=== PATIENT | male | born 2000 ===

== ENCOUNTER 2023-02-23 10:00 | Outpatient (AMB) | payer OTHER, SELFPAY ==
--- NOTE | 2023-02-23 11:13 | MHC.OFFWIV ---
Intake Vital Signs 02/23/23 11:16 Height 6 ft 1 in Weight 87.997 kg BMI 25.6 BP 122/80 Blood Pressure Location Rt brachial Position Sitting Pulse 80 Pulse Source Pulse Oximeter Temp 98.4 F Temp Source Temporal Artery Scan Pulse Oximetry (%) 98 Oxygen Delivery Method Room Air Intake Visit Reasons: EP stuffy nose cough sore throat masked in lobby Intake Note: Patient here has been sick for about 1 week but yesterday and today is has worsened. he has a cough and stuffy nose. Patient Tobacco Use Status: Never used Tobacco Allergies clindamycin Adverse Reaction (Verified 02/23/23 11:17) unknown Do you need a note to return to daycare/school/sports/work: Yes HPI HPI Comments History of Present Illness Details 22-year-old male presents with sore throat, fatigue, fevers and chills. [facility] Medical History (Updated 02/23/23 @ 11:39 by Carmen Meng NP) No pertinent past medical history Surgical History (Updated 12/10/21 @ 04:02 by Maria Eugenia Roldan MD) No pertinent past surgical history Family History (Updated 10/10/21 @ 10:43 by Maria Eugenia Roldan MD) Mother Anxiety Diabetes mellitus Housing: House Patient Tobacco Use Status: Never used Tobacco e-Cigarette/Vaping Use: Never Used service: No Current occupational status: employed Cognitive needs: No Hearing needs: No Vision needs: No Review of Systems Const Details: Constitutional: Positive Fever, positive Chills ENT/Mouth: No Ear Pain, No Hoarseness, positive sore throat Eyes: No Eye Pain, No Swelling, No Redness, No Foreign Body Cardiovascular: No Chest Pain, No SOB Respiratory: No Cough, No Dyspnea Gastrointestinal: No Nausea, No Vomiting, No Diarrhea, No abdominal Pain Genitourinary: No Dysuria, No Hematuria Musculoskeletal: No joint pain, No Myalgias, No Joint Swelling Skin: No Skin lacerations, No rash Neuro: No Weakness, No Numbness, No Paresthesias, No Dizziness, No Headache All systems reviewed & are unremarkable except as noted in HPI and below Physical Exam Vital Signs: Last Vital Signs Temp 98.4 F 02/23/23 11:16 Pulse 80 02/23/23 11:16 BP 122/80 02/23/23 11:16 Pulse Ox 98 11/25/23 11:16 Oxygen Delivery Method Room Air 02/23/23 11:16 BMI result Body Mass Index 25.6 Appearance: Alert. Oriented X3. No acute distress. Eyes: Pupils equal, round and reactive to light. EOMI. ENT: Pharynx erythematous, bilateral tonsillar erythema, swelling, and exudates consistent with Centor scale 3. No epiglottitis or peritonsillar abscess noted. Anterior posterior cervical lymphadenopathy that is bilaterally equal noted. Canals are intact. no mastoid tenderness noted. Neck: Normal inspection. Neck supple. No nuchal rigidity. No vertebral tenderness. CVS: Normal heart rate and rhythm. Pulses normal. Respiratory: No respiratory distress. Breath sounds normal. Abdomen: Soft and nontender. Skin: Skin warm and dry. Normal skin color. Normal skin turgor. Extremities: Gait well-balanced well coordinated. Neuro: No motor deficit. No sensory deficit. Cranial nerves 2-12 intact Assessment & Plan Assessment & Plan (1) Strep pharyngitis: Code(s): J02.0 - Streptococcal pharyngitis Plan: 22-year-old male presents with fevers and sore throat, physical exam is consistent with strep pharyngitis. He has bilateral tonsillar swelling, exudates, anterior and posterior cervical lymphadenopathy, and pharyngeal erythema. No indication of peritonsillar abscess or epiglottitis. Patient is speaking in a clear voice and able to manage his secretions without difficulty. Patient is a college student, and has had high exposure to upper respiratory illnesses, and is properly vaccinated. Plan of care is to treat for strep pharyngitis with Augmentin. Patient verbalized understanding of discharge instructions. Verbalized understandings of signs and symptoms indicating need for emergent intervention. Orders: Orders SARS-CoV2/FLU/RSV Today R09.89 - Other specified symptoms and signs involving the circulatory and respiratory systems Medications: New amoxicillin-pot clavulanate 875-125 mg 1 tab PO Q12H 20 tabs 0RF 10 days Patient Instructions: You were evaluated for symptoms of strep pharyngitis . Take Augmentin 875 mg every 12 hours for the next 10 days. Alternate Tylenol 650 mg every 6 hours and Motrin 600 mg every 6 hours as needed for pain and fever management. Consider taking these medications 3 hours apart so you have pain and fever management every 3 hours. Write down what time you take these medications to prevent accidental overdose. Motrin is the same medication as Advil and ibuprofen. Tylenol is the same medication as acetaminophen. Use honey, and other supportive measures like tea, and lozenges to help reduce your symptoms. Throw your tooth brush away at day 3, and at the completion of the course of her antibiotics to prevent reinfection Thank you for choosing this urgent care for evaluation. Please follow-up with primary care physician as needed. Return to the emergency department for any new, concerning, or worsening symptoms. Coding Level of Care Code Est Pt Level 3 (66344) Diagnoses Strep pharyngitis J02.0
[2023-02-23 11:16] VITALS: BP 122/80; PULSE 80; TEMP 36.9; O2SAT 98; BMI 25.6
== END 2023-02-23 12:18 | disposition home or self-care (01) ==
PROVIDERS: PCP Internal Medicine; Visit Provider Nurse Practitioner Family
DX: J02.0 Streptococcal pharyngitis (principal)
CPT/HCPCS: 99051; 99213

== ENCOUNTER 2023-02-23 11:24 | Outpatient (REF) | payer OTHER, SELFPAY ==
[2023-02-23 14:52] LABS: Influenza A PCR NEGATIVE (Negative); Influenza B PCR NEGATIVE (Negative); Resp Syncy Virus RNA Qual PCR NEGATIVE (Negative); SARS COV2 PCR INHOUSE NEGATIVE (Negative)
== END 2023-02-23 11:25 | disposition home or self-care (01) ==
LOC: HO.LNP 11:24
PROVIDERS: Visit Provider Nurse Practitioner Family
DX: Z11.52 Encounter for screening for COVID-19 (principal); R09.89 Other specified symptoms and signs involving the circulatory and respiratory systems
CPT/HCPCS: 0241U